=== PATIENT | female | born 1990 | race Caucasian/White ===

== ENCOUNTER 2021-08-24 23:43 | Outpatient (CLI) | payer OTHER ==
[~2021-08-24] VITALS: Ht 152.4 cm; Wt 83.6 kg
--- NOTE | 2021-08-24 23:50 | NUR ---
G3L1 at 38 weeks and 6 days arrives to unit with complaint of spontaneous rupture of membranes. Pt reports feeling large gush of fluid around 2300 after using the bathroom. Pt with a history of c/s for failure to progress. Good movement, denies vaginal bleeding, or contractions. Denies headaches, blurry vision, or RUQ pain. Pt oriented to room, call light within reach, bed in low and locked position. Clean gown on. US and toco explained and applied. Plan of care reviewed. Vital signs obtained. Admission assessment started. SVE closed/thick, amnitrace negative.
[2021-08-25 00:15] VITALS: BP 128/80; PULSE 99; TEMP 98.5
--- NOTE | 2021-08-25 00:28 | NUR ---
Category 1 FHR tracing obtained. Contractions every 5-9 minutes on toco but patient is unaware of them. Monitors off, pt to ambulate for 20 minutes.
[2021-08-25 01:15] VITALS: BP 120/67; PULSE 90
--- NOTE | 2021-08-25 01:15 | NUR ---
Pt denies feeling more leaking of fluid. Cervix unchanged over 1 hour. Amnitrace negative. 0130 - Discharge instructions reviewed with patient and spouse, verbalized understanding. Seen ambulating off unit.
[2021-09-07] MEDS ORDERED: CEFTIN 250250 MG/TAB PO (00:17)
== END 2021-08-25 01:30 | disposition home or self-care (01) ==
LOC: LDRO 23:43
DX: O42.92 Full-term premature rupture of membranes, unspecified as to length of time between rupture and onset of labor (principal); Z3A.39 39 weeks gestation of pregnancy

== ENCOUNTER → 2021-08-28 | Outpatient (CLI) | payer OTHER ==
[~2021-08-28] MED LIST: CEFTIN 250250 MG/TAB PO; CLEOCIN HCL300 MG PO; FLAGYL500 MG PO; METHERGINE0.2 MG/TAB PO; MOTRIN 800800 MG/TAB PO; PERCOCET 325 MG1 TA2 PO; PROCARDIA XL 3030 MG PO
== END ==
LOC: ZCOL.LAB 15:56
DX: Z20.822 Contact with and (suspected) exposure to COVID-19 (principal)

== ENCOUNTER 2021-08-30 05:26 | Inpatient (IN) | payer OTHER ==
[2021-08-30] VITALS (16 sets, daily range): BP systolic 92–131; BP diastolic 45–91; PULSE 73–106; TEMP 97.7–98.5
[~2021-08-30] VITALS: Ht 152.4 cm; Wt 84.1 kg
--- NOTE | 2021-08-30 05:40 | NUR ---
0540 ADM TO 209 FOR REPEAT C/SECT. EFM ON. PERMITS SIGNED. IV STARTED. FHT'S BASELINE 122 WITH ACCELS NOTED AND GOOD VARIABILITY
[2021-08-30 06:34] LABS: BASO % 0.3 % (0.0-2.0); EOS % 0.5 % (0-4.0); GRAN # 4.1 (1.4-6.5); GRAN % 62.8 % (42.2-75.2); HEMATOCRIT 36.7 % (37.0-47.0); HEMOGLOBIN 12.2 g/dl (12.5-16.0); LYMPH # 1.8 (1.2-3.4); MEAN CELL VOLUME 92 fl (80.0-100.0); MEAN CORPUSCULAR HEMOGLOBIN 31 pg (27.0-31.0); MEAN CORPUSCULAR HGB CONC 33 g/dl (33.0-37.0); MEAN PLATELET VOLUME 12.8 fl (7.4-10.4); MONO # 0.6 (0.1-0.6); MONO % 8.6 % (1.7-9.3); PLATELET COUNT 146 K/mm3 (130-400); RED BLOOD COUNT 3.97 M/mm3 (4.10-5.30); REDCELL DISTRIBUTION WIDTH-CV 15.4 % (11.5-14.5)
[2021-08-30] MEDS ORDERED: MOTRIN 800800 MG/TAB PO (17:25)
[2021-08-30] MEDS ORDERED: PERCOCET 325 MG1 TA2 PO (17:25)
--- NOTE | 2021-08-31 00:52 | NUR ---
PT IS IN A LOT OF PAIN RELATED TO GAS PAIN IN SHOULDER AREA
[2021-08-31 03:30] VITALS: BP 128/70; PULSE 70; TEMP 98.1
--- NOTE | 2021-08-31 08:21 | NUR ---
Initial visit; Patient thanked Cracker Dough Mixer for offering congratulations and God's blessings for the of her daughter. Cr[employer] Dough Mixer thanked patient for choosing [facility].
[2021-08-31 08:50] VITALS: BP 110/68; PULSE 68; TEMP 98
[2021-08-31 16:45] VITALS: BP 116/71; PULSE 76; TEMP 97.9
[2021-08-31 20:30] VITALS: BP 120/69; PULSE 82; TEMP 98.2
[2021-09-01 08:00] VITALS: BP 130/79; PULSE 82; TEMP 97.8
--- NOTE | 2021-09-01 08:00 | NUR ---
Rests in bed, alert. Ibuprofen 800 mg, roxicodone 5 mg given per request and as ordered.
[2021-09-07] MEDS ORDERED: CEFTIN 250250 MG/TAB PO (00:17)
== END 2021-09-01 13:45 | disposition home or self-care (01) | DRG 788 ==
LOC: OB 05:26
PROVIDERS: ADMIT Obstetrics & Gynecology
PROC: 10D00Z1 Extraction of Products of Conception, Low, Open Approach (ICD-10-PCS; principal; 2021-08-30)
DX: O34.211 Maternal care for low transverse scar from previous cesarean delivery (principal); Z3A.39 39 weeks gestation of pregnancy; Z37.0 Single live birth
CPT/HCPCS: J0690; J1100; J1885; J2405; J2550; J2590; J2765; J7120

== ENCOUNTER 2021-09-06 22:29 | Emergency (ER) | payer OTHER ==
[~2021-09-06] VITALS: Ht 152.4 cm; Wt 75.9 kg
[~2021-09-06 22:29] MED LIST changes: -CEFTIN 250250 MG/TAB PO; -CLEOCIN HCL300 MG PO; -FLAGYL500 MG PO; -METHERGINE0.2 MG/TAB PO; -PROCARDIA XL 3030 MG PO
[2021-09-06 22:44] VITALS: TEMP 98.4
[2021-09-06 23:15] LABS: PROTHROMBIN TIME 11.1 SECONDS (9.7-12.8)
[2021-09-06 23:16] LABS: BASO % 0.4 % (0.0-2.0); EOS # 0.1 K/mm3 (0.0-0.7); EOS % 1.8 % (0-4.0); GRAN # 4.4 K/mm3 (1.4-6.5); GRAN % 64.7 % (42.2-75.2); HEMOGLOBIN 10.9 g/dl (12.5-16.0); LYMPH # 1.6 K/mm3 (1.2-3.4); LYMPH % 23.5 % (20.0-51.0); MEAN CELL VOLUME 91 fl (80.0-100.0); MEAN CORPUSCULAR HEMOGLOBIN 30 pg (27.0-31.0); MEAN CORPUSCULAR HGB CONC 33 g/dl (33.0-37.0); MEAN PLATELET VOLUME 10.6 fl (7.4-10.4); MONO # 0.6 K/mm3 (0.1-0.6); MONO % 8.6 % (1.7-9.3); PLATELET COUNT 237 K/mm3 (130-400); RED BLOOD COUNT 3.62 M/mm3 (4.10-5.30); REDCELL DISTRIBUTION WIDTH-CV 14.7 % (11.5-14.5)
[2021-09-06 23:29] LABS: ALBUMIN 3.2 gm/dL (3.5-5.0); BILIRUBIN,TOTAL 0.3 mg/dL (0.2-1.2); C-REACTIVE PROTEIN 5.5 mg/dL (0.00-0.50); CREATININE, serum 0.73 mg/dL (0.57-1.11); POTASSIUM 4.3 mmol/L (3.5-4.5); TOTAL PROTEIN 7.1 gm/dL (6.2-8.1)
[2021-09-06 23:39] LABS: COLLECTION METHOD CLEAN CATCH
[2021-09-06 23:44] VITALS: BP 133/90; PULSE 79
[2021-09-06 23:49] LABS: MUCOUS Present /lpf; PH 5 (5-8); URINE APPEARANCE Hazy; URINE BACTERIA None Seen /hpf; URINE BILIRUBIN Negative (NEGATIVE); URINE BLOOD 3+ (NEGATIVE); URINE COLOR Yellow; URINE GLUCOSE Negative (NEGATIVE); URINE KETONE Negative (NEGATIVE); URINE LEUKOCYTE ESTERASE 1+ (NEGATIVE); URINE NITRATE Negative (NEGATIVE); URINE PROTEIN(semi-quant) 1+ (NEGATIVE); URINE RBC >50 /hpf; URINE UROBILINOGEN Negative (NEGATIVE)
[2021-09-06] MEDS ORDERED: PROCARDIA XL 3030 MG PO (23:50)
[2021-09-07] MEDS ORDERED: CEFTIN 250250 MG/TAB PO (00:17)
[2021-09-07] MEDS ORDERED: FLAGYL500 MG PO (12:25)
[2021-09-07] MEDS ORDERED: METHERGINE0.2 MG/TAB PO (12:25)
[2021-09-07] MEDS ORDERED: CLEOCIN HCL300 MG PO (12:25)
== END 2021-09-06 23:46 | disposition home or self-care (01) ==
LOC: COL.ER 22:29
PROVIDERS: Nurse Practitioner
DX: O72.1 Other immediate postpartum hemorrhage (principal); O16.5 Unspecified maternal hypertension, complicating the puerperium

== ENCOUNTER 2021-09-07 10:36 | Inpatient (IN) | payer OTHER ==
[~2021-09-07] VITALS: Ht 152.4 cm; Wt 75.9 kg
[2021-09-07] VITALS (13 sets, daily range): BP systolic 99–134; BP diastolic 55–94; PULSE 82–127; TEMP 98.5–100.3
[~2021-09-07 10:36] MED LIST changes: +CEFTIN 250250 MG/TAB PO; +PROCARDIA XL 3030 MG PO
[2021-09-07 11:27] LABS: BASO # 0.1 K/mm3 (0.0-0.2); BASO % 0.5 % (0.0-2.0); EOS # 0.1 K/mm3 (0.0-0.7); EOS % 0.6 % (0-4.0); LYMPH % 6.2 % (20.0-51.0); MEAN CELL VOLUME 93 fl (80.0-100.0); MEAN CORPUSCULAR HGB CONC 33 g/dl (33.0-37.0); MEAN PLATELET VOLUME 10.5 fl (7.4-10.4); MONO # 0.8 K/mm3 (0.1-0.6); PLATELET COUNT 175 K/mm3 (130-400); RED BLOOD COUNT 3.11 M/mm3 (4.10-5.30); REDCELL DISTRIBUTION WIDTH-CV 14.6 % (11.5-14.5)
[2021-09-07 11:34] LABS: HEMOGLOBIN 9.5 g/dl (12.5-16.0); MEAN CORPUSCULAR HEMOGLOBIN 31 pg (27.0-31.0)
[2021-09-07 11:42] LABS: INR 1.2 (0.8-3.0); PROTHROMBIN TIME 13.8 SECONDS (9.7-12.8)
[2021-09-07 11:44] LABS: ALBUMIN 3.1 gm/dL (3.5-5.0); BILIRUBIN,TOTAL 0.9 mg/dL (0.2-1.2); CALCIUM 8.6 mg/dL (8.4-10.2); CREATININE, serum 0.74 mg/dL (0.57-1.11); POTASSIUM 4.1 mmol/L (3.5-4.5); TOTAL PROTEIN 6.8 gm/dL (6.2-8.1)
[2021-09-07] MEDS ORDERED: FLAGYL500 MG PO (12:25)
[2021-09-07] MEDS ORDERED: METHERGINE0.2 MG/TAB PO (12:25)
[2021-09-07] MEDS ORDERED: CLEOCIN HCL300 MG PO (12:25)
[2021-09-07 14:44] LABS: HEMATOCRIT 23.5 % (37.0-47.0); HEMOGLOBIN 7.7 g/dl (12.5-16.0)
--- NOTE | 2021-09-07 16:47 | NUR ---
[employer] construction worker made notification to the [facility] for emergency contact. [id number]- Charge nurse provided case #
--- NOTE | 2021-09-07 19:35 | NUR ---
1934- PT TO ROOM VIA BED FROM PACU. IV INFUSING FFP, SCD'S PLACED. NIALL CATARINA ON. PT ROUSES TO NAME AND IS ORIENTED TO ROOM AND CALL LIGHTS. 2014- PT TURNED SIDE TO SIDE TO CHANGE PADS. PERIPAD AND UNDERBUTT PAD WITH MODERATE BLEEDING, WEIGHED FOR 162 EBL, BAKRI WITH 10ML, UOP 125. PT UNCOMFORTABLE WITH MOVING. 2026- DR LATHAM UPDATED CHARTED. 2114- PADS CHANGED AGAIN AND WEIGHED. EBL 98. 2214- PERIPADS CHANGED AGAIN AND WEIGHED. EBL 114, BAKRI 40ML, UOP 60. 2236- DR LATHAM CALLED AND UPDATED CHARTED. 2304- DR LATHAM AT BEDSIDE AND EVALUATES PT. SHE REMOVES VAGINAL PACKING AT THIS TIME. SHE DISCUSSES PLAN OF CARE WITH PT AND ANSWERES QUESTIONS. FURTHER ORDERS RECIEVED AT THIS TIME.
[2021-09-07 22:15] LABS: HEMATOCRIT 22.3 % (37.0-47.0); HEMOGLOBIN 7.5 g/dl (12.5-16.0)
[2021-09-08] VITALS (29 sets, daily range): BP systolic 94–157; BP diastolic 46–95; PULSE 79–124; TEMP 98.5–100.1
[2021-09-08 07:48] LABS: BASO % 0.2 % (0.0-2.0); EOS % 0.2 % (0-4.0); GRAN # 5.8 K/mm3 (1.4-6.5); GRAN % 67.7 % (42.2-75.2); LYMPH # 1.9 K/mm3 (1.2-3.4); LYMPH % 21.8 % (20.0-51.0); MEAN CORPUSCULAR HGB CONC 33 g/dl (33.0-37.0); MEAN PLATELET VOLUME 10.3 fl (7.4-10.4); MONO # 0.8 K/mm3 (0.1-0.6); MONO % 8.8 % (1.7-9.3); PLATELET COUNT 89 K/mm3 (130-400); RED BLOOD COUNT 2.48 M/mm3 (4.10-5.30); REDCELL DISTRIBUTION WIDTH-CV 18.3 % (11.5-14.5)
[2021-09-08 07:53] LABS: HEMATOCRIT 21.3 % (37.0-47.0); HEMOGLOBIN 7.1 g/dl (12.5-16.0); MEAN CELL VOLUME 86 fl (80.0-100.0); MEAN CORPUSCULAR HEMOGLOBIN 29 pg (27.0-31.0)
[2021-09-08 08:10] LABS: ALBUMIN 2.7 gm/dL (3.5-5.0); BILIRUBIN,TOTAL 0.5 mg/dL (0.2-1.2); CALCIUM 7.2 mg/dL (8.4-10.2); CREATININE, serum 0.7 mg/dL (0.57-1.11); POTASSIUM 3.6 mmol/L (3.5-4.5); TOTAL PROTEIN 4.7 gm/dL (6.2-8.1)
--- NOTE | 2021-09-08 09:10 | NUR ---
Dr. Hickman at bedside. Removed 100cc of fluid of bakri. New pad changed. Old pad from 0200 approximately 20percent saturated.
--- NOTE | 2021-09-08 09:45 | NUR ---
Dr. Hickman at bedside. Removes 100cc of fluid from bakri. Bleeding stable.
--- NOTE | 2021-09-08 10:19 | NUR ---
Dr. Hickman at bedside. Removed 100cc from bakri. No lochia or bleeding noted on pad.
[2021-09-08 11:09] LABS: MEAN CELL VOLUME 88 fl (80.0-100.0); MEAN CORPUSCULAR HGB CONC 33 g/dl (33.0-37.0); MEAN PLATELET VOLUME 10.2 fl (7.4-10.4); PLATELET COUNT 98 K/mm3 (130-400); RED BLOOD COUNT 2.98 M/mm3 (4.10-5.30); REDCELL DISTRIBUTION WIDTH-CV 17.8 % (11.5-14.5)
[2021-09-08 11:10] LABS: HEMATOCRIT 26.1 % (37.0-47.0); HEMOGLOBIN 8.7 g/dl (12.5-16.0); MEAN CORPUSCULAR HEMOGLOBIN 29 pg (27.0-31.0)
--- NOTE | 2021-09-08 11:16 | NUR ---
Picking Belt Operator offered prayer and support with patient.
--- NOTE | 2021-09-08 11:25 | NUR ---
Dr. Hickman at bedside. Removed remaining 200 cc out of bakri balloon. No blood noted on pad.
--- NOTE | 2021-09-08 16:30 | NUR ---
Pt dangled and stood to edge of bed. Pt continues to experience stable vision changes that is described as "seeing in another dimension." Dr. Hickman aware of this. EBL with pad changed 108mLs. Pt states "feeling the same."
[2021-09-08 17:07] LABS: HEMATOCRIT 24.7 % (37.0-47.0); HEMOGLOBIN 8.6 g/dl (12.5-16.0); MEAN CELL VOLUME 84 fl (80.0-100.0); MEAN CORPUSCULAR HEMOGLOBIN 29 pg (27.0-31.0); MEAN CORPUSCULAR HGB CONC 35 g/dl (33.0-37.0); MEAN PLATELET VOLUME 10.2 fl (7.4-10.4); PLATELET COUNT 105 K/mm3 (130-400); RED BLOOD COUNT 2.94 M/mm3 (4.10-5.30); REDCELL DISTRIBUTION WIDTH-CV 17.6 % (11.5-14.5)
[2021-09-09 00:54] VITALS: BP 110/84; PULSE 111; TEMP 99
[2021-09-09 04:30] VITALS: BP 132/88; PULSE 96; TEMP 99
[2021-09-09 07:37] LABS: HEMATOCRIT 24.1 % (37.0-47.0); HEMOGLOBIN 7.9 g/dl (12.5-16.0); MEAN CELL VOLUME 89 fl (80.0-100.0); MEAN CORPUSCULAR HEMOGLOBIN 29 pg (27.0-31.0); MEAN CORPUSCULAR HGB CONC 33 g/dl (33.0-37.0); MEAN PLATELET VOLUME 10.4 fl (7.4-10.4); PLATELET COUNT 100 K/mm3 (130-400); RED BLOOD COUNT 2.71 M/mm3 (4.10-5.30); REDCELL DISTRIBUTION WIDTH-CV 17.7 % (11.5-14.5)
[2021-09-09 07:56] LABS: ALBUMIN 2.6 gm/dL (3.5-5.0); ALKALINE PHOSPHATASE 53 U/L (0-750); ANION GAP 8 mmol/L (7-16); AST,SGOT 11 U/L (5-34); BILIRUBIN,TOTAL 0.4 mg/dL (0.2-1.2); BLOOD UREA NITROGEN 11 mg/dL (7-19); CALCIUM 7.9 mg/dL (8.4-10.2); CARBON DIOXIDE 22 mmol/L (22-29); CHLORIDE 111 mmol/L (98-107); CREATININE, serum 0.64 mg/dL (0.57-1.11); GLUCOSE 92 mg/dL (70-99); POTASSIUM 3.5 mmol/L (3.5-4.5); SODIUM 141 mmol/L (136-145); TOTAL PROTEIN 5.2 gm/dL (6.2-8.1)
[2021-09-09 07:57] LABS: ALANINE AMINOTRANSFERASE < 6 U/L (0-55)
[2021-09-09 08:00] VITALS: BP 135/87; PULSE 89; TEMP 98.6
--- NOTE | 2021-09-09 08:00 | NUR ---
This RN at bedside. Pt dangled to EOB. Clean gown and pad/underwear applied. Croft catheter d/c. LAC IV d/c. Epidural tape not intact. Catheter out of placed. Epidural d/c per pt request. SCD d/c. Pt up to sink for oral care. No dizziness noted. Pt states vision has not improved or worsened. Describes words looking like "shawdows." Does not feel safe walking around or being able to drive at this point. Discussed s/e of TXA and blood loss for vision changes. Would like to discuss with provider regarding lack of normal vision return. Contiues to be anxious about "bleeding happening again."
[2021-09-09 12:19] VITALS: BP 117/80; PULSE 70; TEMP 98.3
[2021-09-09 19:00] VITALS: BP 121/79; PULSE 74; TEMP 98.6
[2021-09-10 00:30] VITALS: BP 137/87; PULSE 86; TEMP 98.3
[2021-09-10 05:00] VITALS: BP 141/81; PULSE 73; TEMP 98.2
[2021-09-10 07:40] LABS: MEAN CELL VOLUME 86 fl (80.0-100.0); MEAN CORPUSCULAR HGB CONC 34 g/dl (33.0-37.0); MEAN PLATELET VOLUME 10.5 fl (7.4-10.4); PLATELET COUNT 141 K/mm3 (130-400); RED BLOOD COUNT 2.78 M/mm3 (4.10-5.30)
[2021-09-10 07:41] LABS: ALBUMIN 2.8 gm/dL (3.5-5.0); BILIRUBIN,TOTAL 0.4 mg/dL (0.2-1.2); CALCIUM 8.6 mg/dL (8.4-10.2); CREATININE, serum 0.65 mg/dL (0.57-1.11); POTASSIUM 3.4 mmol/L (3.5-4.5); TOTAL PROTEIN 5.6 gm/dL (6.2-8.1)
[2021-09-10 07:44] LABS: HEMATOCRIT 23.9 % (37.0-47.0); HEMOGLOBIN 8.1 g/dl (12.5-16.0); MEAN CORPUSCULAR HEMOGLOBIN 29 pg (27.0-31.0)
[2021-09-10 07:51] VITALS: BP 128/76; PULSE 82; TEMP 98.1
--- NOTE | 2021-09-10 08:54 | NUR ---
[address] [place] office called and updated on consult on this patient order placed by Dr Hickman
--- NOTE | 2021-09-10 12:57 | NUR ---
1215 DR FONSECA AT BEDSIDE FOR ASSESSMENT. NO NEW ORDERS NOTED.
[2021-09-10 20:00] VITALS: BP 141/95; PULSE 64; TEMP 98.5
[2021-09-11] VITALS: BP 129/85; PULSE 71; TEMP 98.5
[2021-09-11 04:00] VITALS: BP 144/96; PULSE 83; TEMP 98.3
[2021-09-11 07:45] VITALS: BP 144/90; PULSE 90; TEMP 98.1
[2021-09-11 12:45] VITALS: BP 138/96; PULSE 69; TEMP 98.3
--- NOTE | 2021-09-11 13:30 | NUR ---
Discharge instructions and follow up care reviewed with pt at the bedside. Pt verbalized an understanding, agreed with the plan and states no questions or concerns at this time.
== END 2021-09-11 14:20 | disposition home or self-care (01) | DRG 769 ==
LOC: COL.ER 10:36 → OB 20:49
PROVIDERS: Emergency Medicine; ADMIT Obstetrics & Gynecology
PROC: 0UDB7ZZ Extraction of Endometrium, Via Natural or Artificial Opening (ICD-10-PCS; 2021-09-07)
PROC: 30233N1 Transfusion of Nonautologous Red Blood Cells into Peripheral Vein, Percutaneous Approach (ICD-10-PCS; 2021-09-07)
PROC: 0W3R7ZZ Control Bleeding in Genitourinary Tract, Via Natural or Artificial Opening (ICD-10-PCS; principal; 2021-09-07 16:30)
DX: O72.2 Delayed and secondary postpartum hemorrhage (principal); O90.81 Anemia of the puerperium; D64.9 Anemia, unspecified; H53.8 Other visual disturbances; Z20.822 Contact with and (suspected) exposure to COVID-19; Z88.0 Allergy status to penicillin
CPT/HCPCS: OP; A4314; J0330; J0610; J0690; J1170; J2210; J2250; J2370; J2405; J2550; J2704; J7030; P9016; P9035; Q9967